=== PATIENT | female | born 1960 | race American Indian/Alaskan Native ===

== ENCOUNTER 2016-12-01 16:02 | Inpatient (IN) | payer BC ==
--- NOTE | 2016-12-01 16:18 | Emergency Department Report ---
Entered by GRACE FARMER, acting as scribe for AUGUSTUS SINGH NP. Chief Complaint: Headache Stated Complaint: MIGRAINES/BLACKOUTS Time Seen by Provider: 12/01/16 16:04 - HPI History of Present Illness: 56 y/o female with Hx of seizures, presents with 2 syncopal episodes. last occurred 3 days ago. Pt notes she has had hx of sz, last 1984.. Sx include ROSS, dizziness and LOC during the most recent episode 3 days ago. - ROS Review of Systems: +ROSS +syncope +dizziness +LOC - Exam Vital Signs: Vital Signs 12/01/16 16:10 Temperature 98.4 F Pulse Rate 81 Respiratory 20 Rate Blood Pressure 113/79 O2 Sat by Pulse 98 Oximetry Physical Exam: Neuro: No focal deficit, CNII-XII are grossly intact. No loss of sensation. No facial Droop. normal finger to nose MSE screening note: Focused history and physical exam performed. Due to findings the following was ordered: ct, ekg, labs ED Disposition for MSE Condition: Stable This documentation as recorded by the scribe,GRACE FARMER,accurately reflects the service I personally performed and the decisions made by FRANCISCO steen TRACY M CHUCK SPLITTER.
--- NOTE | 2016-12-01 16:51 | Cat Scan Report ---
CT HEAD WITHOUT CONTRAST INDICATION: Syncope. COMPARISON: None similar. FINDINGS: Noncontrast head CT demonstrates normal ventricles and sulci without acute or recent infarct, hemorrhage, mass effect or midline shift. Minimal, benign bilateral basal ganglia calcifications. No abnormal extra-axial fluid collections. Posterior fossa structures and basilar cisterns appear within normal limits. Symmetric eye globes. Slight nasal septal deviation. Clear paranasal sinuses and mastoid air cells. Mild atherosclerotic ICA calcifications. Intact calvarium. Normal overlying scalp soft tissues. Few radiopaque dental material incidentally noted. CONCLUSION: No acute intracranial CT abnormality, as described. Thank you for the opportunity to participate in this patient's care.
[2016-12-01 16:54] LABS: Basophils % (Auto) 0.7 % (0.0-1.8); Hematocrit 35.5 % (30.3-42.9); Hemoglobin 11.9 gm/dl (10.1-14.3); Mean Corpuscular HGB Conc 34 % (30-34); Mean Corpuscular Hemoglobin 32 pg (28-32); Mean Corpuscular Volume 95 fl (79-97); Platelet Count 273 K/mm3 (140-440); Red Blood Count 3.75 M/mm3 (3.65-5.03); Red Cell Distribution Width 13.4 % (13.2-15.2); White Blood Count 4.9 K/mm3 (4.5-11.0)
[2016-12-01 16:56] LABS: INR 0.97 (0.87-1.13); Partial Thromboplastin Time 27.5 Sec. (24.2-36.6)
[2016-12-01 17:02] LABS: Creatine Kinase MB < 1.0 ng/mL (0.0-4.0)
[2016-12-01 17:03] LABS: Urine Drugs of Abuse Note Disclamer
[2016-12-01 17:04] LABS: Alanine Aminotransferase 14 units/L (7-56); Albumin/Globulin Ratio 1.4 %; Alkaline Phosphatase 59 units/L (35-129); Anion Gap 17 mmol/L; BUN/Creatinine Ratio 14.28; Blood Urea Nitrogen 10 mg/dL (7-17); Calcium 8.4 mg/dL (8.4-10.2); Carbon Dioxide 26 mmol/L (22-30); Creatine Kinase 49 units/L (30-135); Glucose 114 mg/dL (65-100); Sodium 141 mmol/L (137-145); Total Protein 6.9 g/dL (6.3-8.2)
[2016-12-01 17:10] LABS: Bilirubin,Urine NEG (Negative); Blood,Urine NEG (Negative); Ketones,Urine NEG (Negative); Leukocyte Esterase,Urine MOD (Negative); Mucus,Urine FEW /HPF; Nitrite,Urine NEG (Negative); Protein,Urine <15 mg/dL mg/dL (Negative); Urobilinogen,Urine < 2.0 mg/dL (<2.0)
[2016-12-02] MEDS ORDERED: KEPPRA 1,000 MG/NS 0.75% 100ML 1,000 MG/100 ML BAG IV ONE (01:47)
--- NOTE | 2016-12-02 01:55 | Emergency Department Report ---
HPI - General Chief Complaint: Headache Time Seen by Provider: 12/01/16 16:05 - HPI HPI: Room 10 The patient is a 56-year-old female presenting with a chief complaint of syncope. The patient states 3 days ago she was in her usual state of health states she was running into the house to go to the bathroom and then lost consciousness. Patient states her next memory is waking up in her bed. The patient states family found the patient slumped over on the toilet so they took her in place her in her bed. The patient awakened that evening in her bed. The patient states the following day she continued to feel "funny" which included feeling drained and weak. Patient states she stayed in bed all day for the next couple of days secondary to fatigue and was eventually convinced to come to the ED for evaluation. The patient states she developed a headache yesterday. Prior to her sacral episode the patient states she does not recall any preceding symptoms including chest pain, palpitations or headache. The patient has a history of seizures in the past but has not had one since 1984. The patient has been off her Dilantin since 1984. No one witnessed seizure activity and the patient denies bowel or bladder incontinence or tongue abrasion from the event Wednesday Location: Central nervous system Duration: [see above] Quality: Syncope Severity: Moderate Modifying factors: [see above] Context: [see above] Mode of transportation: [not driving] ED Past Medical Hx - Past Medical History Previous Medical History?: Yes Hx Seizures: Yes (no seizures since 1984) Additional medical history: Vaginal dleivery x 2, Uterine fibroids, Hysterectomy - Surgical History Past Surgical History?: Yes Hx Cholecystectomy: Yes Additional Surgical History: Hysterectomy, Bladder tact - Family History Family history: no significant - Social History Smoking Status: Current Every Day Smoker (1/7 pack per day) Substance Use Type: Alcohol (occasional), Marijuana ED Review of Systems ROS: Stated complaint: MIGRAINES/BLACKOUTS Other details as noted in HPI Comment: All other systems reviewed and negative Constitutional: malaise Eyes: vision change (blurred vision) ENT: denies: ear pain, throat pain Respiratory: denies: cough, shortness of breath, wheezing Cardiovascular: denies: chest pain, palpitations Endocrine: no symptoms reported Gastrointestinal: denies: abdominal pain, nausea, diarrhea Genitourinary: denies: urgency, dysuria, discharge Musculoskeletal: denies: back pain, joint swelling, arthralgia Skin: denies: rash, lesions Neurological: denies: headache, weakness, paresthesias Psychiatric: denies: anxiety, depression Hematological/Lymphatic: denies: easy bleeding, easy bruising Physical Exam - Physical Exam Vital Signs: Vital Signs 12/01/16 16:10 Temperature 98.4 F Pulse Rate 81 Respiratory 20 Rate Blood Pressure 113/79 O2 Sat by Pulse 98 Oximetry Physical Exam: GENERAL: The patient is well-developed well-nourished female lying on stretcher not appearing to be in acute distress. [] HEENT: Normocephalic. Atraumatic. Extraocular motions are intact. Patient has moist mucous membranes. No tongue abrasion NECK: Supple. Trachea midline CHEST/LUNGS: Clear to auscultation. There is no respiratory distress noted. HEART/CARDIOVASCULAR: Regular. There is no tachycardia. There is no gallop rub or murmur. ABDOMEN: Abdomen is soft, nontender. Patient has normal bowel sounds. There is no abdominal distention. SKIN: There is no rash. There is no edema. There is no diaphoresis. NEURO: The patient is awake, alert, and oriented. The patient is cooperative. The patient has no focal neurologic deficits. The patient has normal speech. Cranial nerves II through XII grossly intact, patient care specialist 5+5 bilaterally MUSCULOSKELETAL: There is no evidence of acute injury. ED Course Vital Signs 12/01/16 16:10 Temperature 98.4 F Pulse Rate 81 Respiratory 20 Rate Blood Pressure 113/79 O2 Sat by Pulse 98 Oximetry ED Medical Decision Making - Lab Data Result diagrams: 12/01/16 16:23 12/01/16 16:23 Laboratory Tests 12/01/16 12/01/16 12/01/16 16:23 16:23 16:23 WBC 4.9 RBC 3.75 Hgb 11.9 Hct 35.5 MCV 95 MCH 32 MCHC 34 RDW 13.4 Plt Count 273 Lymph % (Auto) 36.5 H [place] % (Auto) 6.9 Eos % (Auto) 2.0 Baso % (Auto) 0.7 Lymph # 1.8 [place] # 0.3 Eos # 0.1 Baso # 0.0 Seg Neutrophils % 53.9 Seg Neutrophils # 2.6 PT 12.8 INR 0.97 APTT 27.5 Sodium 141 Potassium 4.0 Chloride 102.0 Carbon Dioxide 26 Anion Gap 17 BUN 10 Creatinine 0.7 Estimated GFR > 60 BUN/Creatinine Ratio 14.28 Glucose 114 H Calcium 8.4 Magnesium 1.90 Total Bilirubin 0.30 AST 13 ALT 14 Alkaline Phosphatase 59 Total Creatine Kinase 49 CK-MB (CK-2) < 1.0 CK-MB (CK-2) Rel Index 2.0 Troponin T < 0.010 Total Protein 6.9 Albumin 4.0 Albumin/Globulin Ratio 1.4 Urine Color Urine Turbidity Urine pH Ur Specific [place] Urine Protein Urine Glucose (UA) Urine Ketones Urine Blood Urine Nitrite Urine Bilirubin Urine Urobilinogen Ur Leukocyte Esterase Urine WBC (Auto) Urine RBC (Auto) U Epithel Cells (Auto) Urine Mucus Urine Opiates Screen Urine Methadone Screen Ur Barbiturates Screen Ur Phencyclidine Scrn Ur Amphetamines Screen U Benzodiazepines Scrn Urine Cocaine Screen U Marijuana (THC) Screen Drugs of Abuse Note 12/01/16 12/01/16 16:55 16:55 WBC RBC Hgb Hct MCV MCH MCHC RDW Plt Count Lymph % (Auto) [place] % (Auto) Eos % (Auto) Baso % (Auto) Lymph # [place] # Eos # Baso # Seg Neutrophils % Seg Neutrophils # PT INR APTT Sodium Potassium Chloride Carbon Dioxide Anion Gap BUN Creatinine Estimated GFR BUN/Creatinine Ratio Glucose Calcium Magnesium Total Bilirubin AST ALT Alkaline Phosphatase Total Creatine Kinase CK-MB (CK-2) CK-MB (CK-2) Rel Index Troponin T Total Protein Albumin Albumin/Globulin Ratio Urine Color Yellow Urine Turbidity Clear Urine pH 5.0 Ur Specific [place] 1.011 Urine Protein <15 mg/dl Urine Glucose (UA) Neg Urine Ketones Neg Urine Blood Neg Urine Nitrite Neg Urine Bilirubin Neg Urine Urobilinogen < 2.0 Ur Leukocyte Esterase Mod Urine WBC (Auto) 4.0 Urine RBC (Auto) 4.0 U Epithel Cells (Auto) 4.0 Urine Mucus Few Urine Opiates Screen Presumptive negative Urine Methadone Screen Presumptive negative Ur Barbiturates Screen Presumptive negative Ur Phencyclidine Scrn Presumptive negative Ur Amphetamines Screen Presumptive negative U Benzodiazepines Scrn Presumptive negative Urine Cocaine Screen Presumptive negative U Marijuana (THC) Screen Presumptive positive Drugs of Abuse Note Disclamer - EKG Data -: EKG Interpreted by Wi EKG shows normal: sinus rhythm Rate: normal - EKG Data When compared to previous EKG there are: previous EKG unavailable Interpretation: normal EKG - Radiology Data Radiology results: report reviewed (CT head), image reviewed (CT head) CT head (read by radiologist)-no acute intracranial CT abnormality. - Differential Diagnosis syncope, seizure, ICH, electrolyte abnormality, dysrhythmia Critical care attestation.: If time is entered above; I have spent that time in minutes in the direct care of this critically ill patient, excluding procedure time. ED Disposition Clinical Impression: Syncope Disposition: DC-09 OP ADMIT IP TO THIS HOSP Is pt being admited?: Yes Does the pt Need Aspirin: Yes Condition: Fair Instructions: Syncope (ED) Referrals: DEANNA GOODRICH MD [Primary Care Provider] - 3-5 Days Time of Disposition: 01:57 (hospitalist paged)
[2016-12-02] MEDS ORDERED: ASPIRIN PO ONE (01:57)
--- NOTE | 2016-12-02 02:54 | Admit Criteria Form ---
Admission Criteria Documentation: SYNCOPE Clinical Indications for Admission to Inpatient Care ( Place 'X' for any and all applicable criteria): Admission is indicated for syncope and ANY ONE of the following (1)(2)(3)(4)(5) (6)(7) : [X ]I. Inpatient admission required rather than observation care (Also use Syncope: Observation Care Criteria as appropriate) because of ANY ONE of the following: [ ]a) Hemodynamic instability that is severe or persistent [ ]b) Cardiac arrhythmias of immediate concern identified or strongly suspected (eg, needs electrophysiologic study) [ ]c) Acute coronary syndrome identified (Also use Myocardial Infarction or Angina Criteria form ) [ ]d) Structural cardiac disorder (eg, aortic stenosis) suspected as cause that requires immediate correction [ ]e) Respiratory symptoms (eg, dyspnea, tachypnea) that are severe or persistent [ ]f) Neurologic signs or symptoms that are severe or persistent ( eg, stroke, seizures, altered mental status) [ ]g) Severe electrolyte abnormalities requiring inpatient care [ ]h) Supplemental oxygen or respiratory treatment for over 24 hrs that are performable only in acute inpatient setting [ ]i) IV fluid to replace significant ongoing (eg, for over 24 hrs ) losses (>3 L/m2 per day) [ ]j) Continuous intravenous infusion of anticoagulation, platelet inhibitor, vasoactive, or antiarrhythmic medication(15)(16) [ ]k) Pulmonary artery catheter monitoring [ ]l) Temporary pacemaker placement(17) [ ]m) Emergent cardioversion(18) [ X]n) Other conditions, treatment or monitoring requiring inpatient admission [ ]II. Suspicion of imminently dangerous cause (eg, rare causes like pericardial tamponade, pulmonary embolism) [ ]III. Syncope causing severe injury requiring hospitalization Extended stay beyond goal length of stay may be needed for(28) [ ]a) Dangerous arrhythmia(15)(23)(27)(29) [ ]b) Myocardial ischemia [ ]c) Seizure disorder [ ]d) Syncope-related injuries The original [facility] content created by [employer] has been revised. The portions of the content which have been revised are identified through the use of italic text or in bold, and [employer] has neither reviewed nor approved the modified material. All other unmodified content is copyright [facility] [employer]. Please see references footnoted in the original [facility] edition 2016 Admission Criteria Met: Yes
[2016-12-02] MEDS ORDERED: TYLENOL PO PRN (04:10)
[2016-12-02] MEDS ORDERED: ZOFRAN IV PRN ×2 (04:11→09:00)
[2016-12-02] MEDS ORDERED: TYLENOL ONE (04:13)
[2016-12-02] MEDS ORDERED: NACL 0.9% 1000 ML 1,000 ML IV SCH (05:00)
--- NOTE | 2016-12-02 08:00 | History and Physical Report ---
CHIEF COMPLAINT: Syncopal attack. Other complaint include headache. HISTORY OF PRESENTING ILLNESS: The patient is a 56-year-old female who said that she passed out about 6 days ago, but prior to passing out 6 days ago, she felt dizzy with some headache and then passed out for unknown period of time and then 3 days ago on Wednesday without any warning she passed out again, but prior to passing out 3 days ago, there was no symptom of headache, dizziness, or chest pain. Also, the patient denies history of nausea, vomiting, or shortness of breath and was compelled by family to come to the Emergency Room to be checked out. The patient said after passing out, she stayed in the house for couple of days, feeling weak and having some funny feeling with drained energy. PAST MEDICAL HISTORY: Pertinent for seizure disorder and last seizure attack was in 1984. PAST SURGICAL HISTORY: Pertinent for hysterectomy, bladder, back surgery. SOCIAL HISTORY: The patient smokes cigarettes. Drinks alcohol occasionally and uses illicit drug notably marijuana. FAMILY HISTORY: Noncontributory. MEDICATIONS: The patient's home medications are not known at this time. REVIEW OF SYSTEMS: CONSTITUTIONAL: There is no fever, no chills, no diaphoresis. HEENT: There is headache with no sore throat. CARDIOVASCULAR SYSTEM: There is no chest pain or orthopnea. RESPIRATORY SYSTEM: There is no shortness of breath or cough. GASTROINTESTINAL SYSTEM: There is no nausea, no vomiting, no abdominal pain, diarrhea, or constipation. NEUROLOGICAL SYSTEM: Syncopal attack noted, generalized weakness noted. No change in mental status. MUSCULOSKELETAL: There is no joint pain or swelling. DERMATOLOGICAL SYSTEM: There is no skin rash or itching. GENITOURINARY SYSTEM: There is no dysuria, hematuria, or flank pain. Rest of system review is normal. PHYSICAL EXAMINATION: GENERAL: At the time of exam, the patient was found to be alert, oriented x3 and not in acute distress. VITAL SIGNS: Shows temperature of 97.8 degrees Fahrenheit, pulse of 73, respirations 18, blood pressure 126/69, O2 sat of 100% on room air. HEENT: Showed pupils to be equal, round, reactive to light, and accommodation. Extraocular muscles are intact. NECK: Supple with no JVD or carotid bruit. CARDIOVASCULAR: Showed normal first and second heart sounds with no gallops or murmur. RESPIRATORY SYSTEM: Show good air entry on both sides of the lung with no abnormal breath sounds. GASTROINTESTINAL SYSTEM: Show abdomen to be full, soft, nontender with no organomegaly or rigidity. NEUROLOGIC: Shows no focal deficit. MUSCULOSKELETAL SYSTEM: Show no joint swelling or tenderness. DERMATOLOGICAL SYSTEM: Show no skin rash. GENITOURINARY SYSTEM: Showing no costovertebral angle tenderness. PERTINENT LABORATORY: The patient had urine drug screen done that was positive for marijuana. Urinalysis came back unremarkable. Cardiac enzyme was unremarkable. The patient's chemistry was unremarkable and a CBC also came back unremarkable. IMAGING STUDIES: The patient had a CT of the head done with no contrast and shows no acute intracranial lesion. DIAGNOSES: 1. Syncope. 2. Marijuana abuse. PLAN: The patient will be admitted to medical floor on telemetry and will have cardiac enzymes involving troponin, total CK, and CK-MB checked q. 6 hours x2 more levels. The patient will have MRI of the brain without contrast done this morning and will have bilateral carotid Doppler done this morning as well as 2D echo. The patient will be on IV normal saline at 100 mL an hour and will be on Tylenol 650 mg by mouth every 4 hours as needed for fever and headache. The patient will be on IV Zofran 4 mg every 8 hours for nausea and vomiting and DVT prophylaxis will be through sequential compressive device and the patient's home medications will be reconciled and applied accordingly. JOB# [id number] OCN/ARIC MTDT[place]
[2016-12-02] MEDS ORDERED: DULCOLAX PR PRN (09:00)
[2016-12-02] MEDS ORDERED: MORPHINE IV PRN (09:00)
[2016-12-02 09:49] LABS: Basophils % (Auto) 0.5 % (0.0-1.8); Eosinophils % (Auto) 2.1 % (0.0-4.3); Hematocrit 34.5 % (30.3-42.9); Hemoglobin 11.7 gm/dl (10.1-14.3); Mean Corpuscular HGB Conc 34 % (30-34); Mean Corpuscular Hemoglobin 32 pg (28-32); Mean Corpuscular Volume 94 fl (79-97); Platelet Count 254 K/mm3 (140-440); Red Blood Count 3.69 M/mm3 (3.65-5.03); Red Cell Distribution Width 13.2 % (13.2-15.2); White Blood Count 5.1 K/mm3 (4.5-11.0)
--- NOTE | 2016-12-02 10:07 | Magnetic Resonance Report ---
MRI OF THE BRAIN WITHOUT CONTRAST: HISTORY: Syncope PROCEDURE: Multiplanar, multisequence MR imaging of the brain without IV contrast was performed. COMPARISON: CT head performed 12/01/16. FINDINGS: The brain parenchyma signal intensity and its hart white interface are within normal limits on all sequences. No evidence for acute ischemia, hemorrhage or mass. No chronic infarct or extra-axial fluid collection. The midline structures are central. The basal cisterns are patent. Normal ventricular size. The orbital cavities and sella turcica demonstrate no abnormality. The visualized paranasal sinuses and mastoid air cells are well aerated. IMPRESSION: Unremarkable non-enhanced MRI of the brain.
[2016-12-02 10:08] LABS: Anion Gap 17 mmol/L; BUN/Creatinine Ratio 16.66; Blood Urea Nitrogen 10 mg/dL (7-17); Calcium 8.4 mg/dL (8.4-10.2); Carbon Dioxide 24 mmol/L (22-30); Chloride 105.1 mmol/L (98-107); Glucose 92 mg/dL (65-100); Potassium 4.1 mmol/L (3.6-5.0); Sodium 142 mmol/L (137-145)
--- NOTE | 2016-12-02 11:27 | History and Physical Report ---
<AIDEE MEMBRENO - Last Filed: 12/02/16 13:10> History of Present Illness Date of examination: 12/02/16 Date of admission: 12/02/16 04:05 Chief complaint: passed out 3 days ago History of present illness: Patient is a 56 years old -[place] with past medical history of seizure who presents emergency department status post syncope. patient stated that was in her usual state of health, which allows her to lead a fairly active life, until six days. Patient when she was setting on the porch eating Eddy, at that time she felt "dizzy". She described the dizziness as "feeling like she was going to pass out." She doesn't remember what happened but thinks she lost consciousness for only a few seconds to minutes. No one was home at the time to witness it. After or prior to losing consciousness, she did not experience a headache, chest pain, palpitations, or shortness of breath. She was not incontinent. She stopped eating the peach, and she felt fine.She had a very similar episode three days ago while she was unlocking her house door. She felt like she was going to faint and fell back onto the door so did not hurt herself. this time her sister was with her to witness it. Her sister insisted that she come to the ER. She has not started any new medicines or engaged in any new activities lately. She has not been sick including no N/V/D. She has never had chest pains or been told she has heart disease. She has had vertigo in the past but that was very different from his current "dizziness". She has not had any change in vision, slurred speech, weakness, numbness, biting tongue or tingling in the last week. Patient reported throbbing bilateral headache. Patient was given IV Keppra and aspirin in the ED. Past History Past Medical History: seizures (not on med) Past Surgical History: No surgical history Social history: no significant social history, other (Marijuana abuse) Family history: CAD Medications and Allergies Allergies Allergy/AdvReac Type Severity Reaction Status Date / Time Penicillins AdvReac Severe FACE & Unverified 01/31/14 12:33 TONGUE SWELLS Home Medications Medication Instructions Recorded Confirmed Last Taken Type Lansoprazole [Prevacid] 30 mg PO DAILY 12/02/16 12/02/16 1 Week Ago History Active Meds: Active Medications Acetaminophen (Tylenol) 650 mg PO Q4H PRN PRN Reason: Pain MILD(1-3)/Fever >100.5/ROSS Aspirin (Aspirin) 325 mg PO QDAY [facility]RES Bisacodyl (Dulcolax) 10 mg [place] QDAY PRN PRN Reason: Constipation unrelieved by MOM Sodium Chloride (Nacl 0.9% 1000 Ml) 1,000 mls @ 100 mls/hr IV DIRECT ANDRES Dextrose/Sodium Chloride (D5/0.45ns) 1,000 mls @ 75 mls/hr IV DIRECT ANDRES Levetiracetam (Keppra) 500 mg PO BID [facility] Morphine Sulfate (Morphine) 2 mg IV Q4H PRN PRN Reason: Pain, Moderate (4-6) Ondansetron HCl (Zofran) 4 mg IV Q4H PRN PRN Reason: Nausea And Vomiting Review of Systems Constitutional: no weight loss, no weight gain, no chills, no sweats Ears, nose, mouth and throat: no ear pain, no ear discharge, no tinnitis, no decreased hearing, no nose pain, no nasal congestion, no nasal discharge Breasts: no change in shape, no swelling Cardiovascular: syncope, lightheadedness, no chest pain, no orthopnea, no palpitations, no rapid/irregular heart beat Respiratory: no cough, no cough with sputum, no excessive sputum, no hemoptysis Gastrointestinal: no nausea, no vomiting, no diarrhea, no constipation Genitourinary Female: no pelvic pain, no flank pain, no menorrhagia, no dysuria Rectal: no pain, no incontinence Musculoskeletal: no neck stiffness, no neck pain, no shooting arm pain Integumentary: no rash, no pruritis, no redness, no sores Neurological: syncope, no transient paralysis, no paralysis, no weakness, no parathesias, no numbness, no tingling, no seizures, no headaches Psychiatric: no insomnia, no hypersomnia, no change in libido Endocrine: no cold intolerance, no heat intolerance, no polyphagia, no excessive thirst Hematologic/Lymphatic: no easy bruising, no easy bleeding Allergic/Immunologic: no urticaria, no allergic rhinitis Exam - Constitutional Vitals: Temp Pulse Resp BP Pulse Ox 98.0 F 47 L 20 127/70 99 12/02/16 10:55 12/02/16 10:55 12/02/16 10:55 12/02/16 10:55 12/02/16 10:55 General appearance: Present: no acute distress - EENT Eyes: Present: PERRL ENT: hearing intact - Neck Neck: Present: supple - Respiratory Respiratory effort: normal Respiratory: bilateral: CTA - Cardiovascular Heart rate: 47 (bradycardia.) Heart Sounds: Present: S1 & S2 - Extremities Extremities: no ischemia Peripheral Pulses: within normal limits - Abdominal General gastrointestinal: Present: soft, non-tender Female genitourinary: Present: deferred - Rectal Rectal Exam: deferred - Integumentary Integumentary: Present: clear, warm, dry - Musculoskeletal Musculoskeletal: strength equal bilaterally - Psychiatric Psychiatric: appropriate mood/affect - Neurologic Neurologic: CNII-XII intact - Allied Health Allied health notes reviewed: nursing Results - Labs CBC & Chem 7: 12/02/16 09:38 12/02/16 09:38 Labs: Laboratory Last Values WBC 5.1 K/mm3 (4.5-11.0) 12/02/16 09:38 RBC 3.69 M/mm3 (3.65-5.03) 12/02/16 09:38 Hgb 11.7 gm/dl (10.1-14.3) 12/02/16 09:38 Hct 34.5 % (30.3-42.9) 12/02/16 09:38 MCV 94 fl (79-97) 12/02/16 09:38 MCH 32 pg (28-32) 12/02/16 09:38 MCHC 34 % (30-34) 12/02/16 09:38 RDW 13.2 % (13.2-15.2) 12/02/16 09:38 Plt Count 254 K/mm3 (140-440) 12/02/16 09:38 Lymph % (Auto) 37.8 % (13.4-35.0) H 12/02/16 09:38 [place] % (Auto) 6.8 % (0.0-7.3) 12/02/16 09:38 Eos % (Auto) 2.1 % (0.0-4.3) 12/02/16 09:38 Baso % (Auto) 0.5 % (0.0-1.8) 12/02/16 09:38 Lymph # 1.9 K/mm3 (1.2-5.4) 12/02/16 09:38 [place] # 0.3 K/mm3 (0.0-0.8) 12/02/16 09:38 Eos # 0.1 K/mm3 (0.0-0.4) 12/02/16 09:38 Baso # 0.0 K/mm3 (0.0-0.1) 12/02/16 09:38 Seg Neutrophils % 52.8 % (40.0-70.0) 12/02/16 09:38 Seg Neutrophils # 2.7 K/mm3 (1.8-7.7) 12/02/16 09:38 PT 12.8 Sec. (12.2-14.9) 12/01/16 16:23 INR 0.97 (0.87-1.13) 12/01/16 16:23 APTT 27.5 Sec. (24.2-36.6) 12/01/16 16:23 Sodium 142 mmol/L (137-145) 12/02/16 09:38 Potassium 4.1 mmol/L (3.6-5.0) 12/02/16 09:38 Chloride 105.1 mmol/L (98-107) 12/02/16 09:38 Carbon Dioxide 24 mmol/L (22-30) 12/02/16 09:38 Anion Gap 17 mmol/L 12/02/16 09:38 BUN 10 mg/dL (7-17) 12/02/16 09:38 Creatinine 0.6 mg/dL (0.7-1.2) L 12/02/16 09:38 Estimated GFR > 60 ml/min 12/02/16 09:38 BUN/Creatinine Ratio 16.66 % 12/02/16 09:38 Glucose 92 mg/dL (65-100) 12/02/16 09:38 Calcium 8.4 mg/dL (8.4-10.2) 12/02/16 09:38 Magnesium 1.90 mg/dL (1.7-2.3) 12/01/16 16:23 Total Bilirubin 0.30 mg/dL (0.1-1.2) 12/01/16 16:23 AST 13 units/L (5-40) 12/01/16 16:23 ALT 14 units/L (7-56) 12/01/16 16:23 Alkaline Phosphatase 59 units/L (35-129) 12/01/16 16:23 Total Creatine Kinase 49 units/L (30-135) 12/01/16 16:23 CK-MB (CK-2) < 1.0 ng/mL (0.0-4.0) 12/01/16 16:23 CK-MB (CK-2) Rel Index 2.0 (0-4) 12/01/16 16:23 Troponin T < 0.010 ng/mL (0.00-0.029) 12/01/16 16:23 Total Protein 6.9 g/dL (6.3-8.2) 12/01/16 16:23 Albumin 4.0 g/dL (3.9-5) 12/01/16 16:23 Albumin/Globulin Ratio 1.4 % 12/01/16 16:23 Urine Color Yellow (Yellow) 12/01/16 16:55 Urine Turbidity Clear (Clear) 12/01/16 16:55 Urine pH 5.0 (5.0-7.0) 12/01/16 16:55 Ur Specific [place] 1.011 (1.003-1.030) 12/01/16 16:55 Urine Protein <15 mg/dl mg/dL (Negative) 12/01/16 16:55 Urine Glucose (UA) Neg mg/dL (Negative) 12/01/16 16:55 Urine Ketones Neg mg/dL (Negative) 12/01/16 16:55 Urine Blood Neg (Negative) 12/01/16 16:55 Urine Nitrite Neg (Negative) 12/01/16 16:55 Urine Bilirubin Neg (Negative) 12/01/16 16:55 Urine Urobilinogen < 2.0 mg/dL (<2.0) 12/01/16 16:55 Ur Leukocyte Esterase Mod (Negative) 12/01/16 16:55 Urine WBC (Auto) 4.0 /HPF (0.0-6.0) 12/01/16 16:55 Urine RBC (Auto) 4.0 /HPF (0.0-6.0) 12/01/16 16:55 U Epithel Cells (Auto) 4.0 /HPF (0-13.0) 12/01/16 16:55 Urine Mucus Few /HPF 12/01/16 16:55 Urine Opiates Screen Presumptive negative 12/01/16 16:55 Urine Methadone Screen Presumptive negative 12/01/16 16:55 Ur Barbiturates Screen Presumptive negative 12/01/16 16:55 Ur Phencyclidine Scrn Presumptive negative 12/01/16 16:55 Ur Amphetamines Screen Presumptive negative 12/01/16 16:55 U Benzodiazepines Scrn Presumptive negative 12/01/16 16:55 Urine Cocaine Screen Presumptive negative 12/01/16 16:55 U Marijuana (THC) Screen Presumptive positive 12/01/16 16:55 Drugs of Abuse Note Disclamer 12/01/16 16:55 - Imaging and Cardiology CT Scan - head: image reviewed (no acute intracranial process noted) MRI - head: image reviewed (unremarkable) Venous US: image reviewed (REPORT; <50% STENOSIS NOTED BILAT BY DOPPLER VELOCITIES) Assessment and Plan Assessment and plan: Patient is a 56 years old -[place] with past medical history of seizure who presents emergency department complaining of syncope. Negative cardiac enzyme X3, EKG Sinus bradycardia with HR of high 40's/50's and Chest x-ray-no focal infiltrates, no pneumothorax. CT of the head no acute intracranial process. Unremarkable MRI of the head. Normal VL Carotid duplex. Syncope Patient will admit to telemetry floor Unremarkable MRI f the head Negative CT of the head Normal VL Carotid duplex bilateral EKG Sinus bradycardia with HR of high 40's/50'swe will also get another EKG in order for any change that have taken since the first obtained Negative cardiac enzymes and follow cardiac enzymes troponin Echocardiogram ordered Started on aspirin IV fluid hydration. Bradycardia Most likely patient's baseline no previous EKG to compare Closely cardiac monitoring IV fluid hydration Echocardiogram ordred Migraine headache Normal CT/MRI of the head Pain controlled with morphine Marijuana abuse Marijuana cessation counseling done patient strongly advised to quit smoking. Tobacco abuse Smoking sensation considering done patient strongly advised to quit. DVT prophylaxis Lovenox Advance Directives: Yes VTE prophylaxis?: Chemical Contraindication Mechanical VTE Prophylaxis: Treatment Not Indicated Plan of care discussed with patient/family: Yes <MEDHAT SANDOVAL - Last Filed: 12/02/16 14:44> History of Present Illness Date of admission: 12/02/16 04:05 Medications and Allergies Active Meds: Active Medications Acetaminophen (Tylenol) 650 mg PO Q4H PRN PRN Reason: Pain MILD(1-3)/Fever >100.5/ROSS Last Admin: 12/02/16 11:47 Dose: 650 mg Aspirin (Aspirin) 325 mg PO QDAY [facility] Last Admin: 12/02/16 11:47 Dose: 325 mg Bisacodyl (Dulcolax) 10 mg [place] QDAY PRN PRN Reason: Constipation unrelieved by MOM Sodium Chloride (Nacl 0.9% 1000 Ml) 1,000 mls @ 100 mls/hr IV DIRECT ANDRES Dextrose/Sodium Chloride (D5/0.45ns) 1,000 mls @ 75 mls/hr IV DIRECT ANDRES Last Admin: 12/02/16 11:48 Dose: 75 mls/hr Levetiracetam (Keppra) 500 mg PO BID [facility] Last Admin: 12/02/16 11:47 Dose: 500 mg Morphine Sulfate (Morphine) 2 mg IV Q4H PRN PRN Reason: Pain, Moderate (4-6) Ondansetron HCl (Zofran) 4 mg IV Q4H PRN PRN Reason: Nausea And Vomiting Exam - Constitutional Vitals: Temp Pulse Resp BP Pulse Ox 98.0 F 47 L 20 127/70 99 12/02/16 10:55 12/02/16 10:55 12/02/16 12:04 12/02/16 10:55 12/02/16 10:55 Results - Labs CBC & Chem 7: 12/02/16 09:38 12/02/16 09:38 Labs: Laboratory Last Values WBC 5.1 K/mm3 (4.5-11.0) 12/02/16 09:38 RBC 3.69 M/mm3 (3.65-5.03) 12/02/16 09:38 Hgb 11.7 gm/dl (10.1-14.3) 12/02/16 09:38 Hct 34.5 % (30.3-42.9) 12/02/16 09:38 MCV 94 fl (79-97) 12/02/16 09:38 MCH 32 pg (28-32) 12/02/16 09:38 MCHC 34 % (30-34) 12/02/16 09:38 RDW 13.2 % (13.2-15.2) 12/02/16 09:38 Plt Count 254 K/mm3 (140-440) 12/02/16 09:38 Lymph % (Auto) 37.8 % (13.4-35.0) H 12/02/16 09:38 [place] % (Auto) 6.8 % (0.0-7.3) 12/02/16 09:38 Eos % (Auto) 2.1 % (0.0-4.3) 12/02/16 09:38 Baso % (Auto) 0.5 % (0.0-1.8) 12/02/16 09:38 Lymph # 1.9 K/mm3 (1.2-5.4) 12/02/16 09:38 [place] # 0.3 K/mm3 (0.0-0.8) 12/02/16 09:38 Eos # 0.1 K/mm3 (0.0-0.4) 12/02/16 09:38 Baso # 0.0 K/mm3 (0.0-0.1) 12/02/16 09:38 Seg Neutrophils % 52.8 % (40.0-70.0) 12/02/16 09:38 Seg Neutrophils # 2.7 K/mm3 (1.8-7.7) 12/02/16 09:38 PT 12.8 Sec. (12.2-14.9) 12/01/16 16:23 INR 0.97 (0.87-1.13) 12/01/16 16:23 APTT 27.5 Sec. (24.2-36.6) 12/01/16 16:23 Sodium 142 mmol/L (137-145) 12/02/16 09:38 Potassium 4.1 mmol/L (3.6-5.0) 12/02/16 09:38 Chloride 105.1 mmol/L (98-107) 12/02/16 09:38 Carbon Dioxide 24 mmol/L (22-30) 12/02/16 09:38 Anion Gap 17 mmol/L 12/02/16 09:38 BUN 10 mg/dL (7-17) 12/02/16 09:38 Creatinine 0.6 mg/dL (0.7-1.2) L 12/02/16 09:38 Estimated GFR > 60 ml/min 12/02/16 09:38 BUN/Creatinine Ratio 16.66 % 12/02/16 09:38 Glucose 92 mg/dL (65-100) 12/02/16 09:38 Calcium 8.4 mg/dL (8.4-10.2) 12/02/16 09:38 Magnesium 1.90 mg/dL (1.7-2.3) 12/01/16 16:23 Total Bilirubin 0.30 mg/dL (0.1-1.2) 12/01/16 16:23 AST 13 units/L (5-40) 12/01/16 16:23 ALT 14 units/L (7-56) 12/01/16 16:23 Alkaline Phosphatase 59 units/L (35-129) 12/01/16 16:23 Total Creatine Kinase 49 units/L (30-135) 12/01/16 16:23 CK-MB (CK-2) < 1.0 ng/mL (0.0-4.0) 12/01/16 16:23 CK-MB (CK-2) Rel Index 2.0 (0-4) 12/01/16 16:23 Troponin T < 0.010 ng/mL (0.00-0.029) 12/01/16 16:23 Total Protein 6.9 g/dL (6.3-8.2) 12/01/16 16:23 Albumin 4.0 g/dL (3.9-5) 12/01/16 16:23 Albumin/Globulin Ratio 1.4 % 12/01/16 16:23 Urine Color Yellow (Yellow) 12/01/16 16:55 Urine Turbidity Clear (Clear) 12/01/16 16:55 Urine pH 5.0 (5.0-7.0) 12/01/16 16:55 Ur Specific [place] 1.011 (1.003-1.030) 12/01/16 16:55 Urine Protein <15 mg/dl mg/dL (Negative) 12/01/16 16:55 Urine Glucose (UA) Neg mg/dL (Negative) 12/01/16 16:55 Urine Ketones Neg mg/dL (Negative) 12/01/16 16:55 Urine Blood Neg (Negative) 12/01/16 16:55 Urine Nitrite Neg (Negative) 12/01/16 16:55 Urine Bilirubin Neg (Negative) 12/01/16 16:55 Urine Urobilinogen < 2.0 mg/dL (<2.0) 12/01/16 16:55 Ur Leukocyte Esterase Mod (Negative) 12/01/16 16:55 Urine WBC (Auto) 4.0 /HPF (0.0-6.0) 12/01/16 16:55 Urine RBC (Auto) 4.0 /HPF (0.0-6.0) 12/01/16 16:55 U Epithel Cells (Auto) 4.0 /HPF (0-13.0) 12/01/16 16:55 Urine Mucus Few /HPF 12/01/16 16:55 Urine Opiates Screen Presumptive negative 12/01/16 16:55 Urine Methadone Screen Presumptive negative 12/01/16 16:55 Ur Barbiturates Screen Presumptive negative 12/01/16 16:55 Ur Phencyclidine Scrn Presumptive negative 12/01/16 16:55 Ur Amphetamines Screen Presumptive negative 12/01/16 16:55 U Benzodiazepines Scrn Presumptive negative 12/01/16 16:55 Urine Cocaine Screen Presumptive negative 12/01/16 16:55 U Marijuana (THC) Screen Presumptive positive 12/01/16 16:55 Drugs of Abuse Note Disclamer 12/01/16 16:55 Assessment and Plan Assessment and plan: I have personally seen and examined the patient. I reviewed the Nurse Practitioner's note and agree with the assessment and plan Syncopal episode most likely autonomic dysfunction versus seizure disorder versus other ordered EEG and neurology consult Informed patient that she should not drive until cleared by neurologist
[2016-12-02] MEDS: TYLENOL PO PRN ×3 (11:47→20:40)
[2016-12-02] MEDS: KEPPRA PO SCH ×2 (11:47→21:33)
[2016-12-02] MEDS: ASPIRIN PO SCH (11:47)
[2016-12-02] MEDS: D5/0.45NS 1,000 ML IV SCH (11:48)
[2016-12-03] MEDS: D5/0.45NS 1,000 ML IV SCH (02:17)
--- NOTE | 2016-12-03 08:32 | Consultation ---
History of Present Illness - Reason for Consult Consult date: 12/03/16 seizure evaluation - History of Present Illness the MRI was reviewed by me and it is normal the patient has been off dilantin and there is pruior hx of seizure disorder plan to check EEG if no other cause for syncope found might suggest restarting medication like keppra will review EEG once done other w/u is pending Thanks Past History Past Medical History: seizures (not on med) Past Surgical History: No surgical history Social history: no significant social history, other (Marijuana abuse) Family history: CAD Medications and Allergies Allergies Allergy/AdvReac Type Severity Reaction Status Date / Time Penicillins AdvReac Severe FACE & Unverified 01/31/14 12:33 TONGUE SWELLS Home Medications Medication Instructions Recorded Confirmed Last Taken Type Lansoprazole [Prevacid] 30 mg PO DAILY 12/02/16 12/02/16 1 Week Ago History Active Meds: Active Medications Acetaminophen (Tylenol) 650 mg PO Q4H PRN PRN Reason: Pain MILD(1-3)/Fever >100.5/ROSS Last Admin: 12/02/16 20:40 Dose: 650 mg Aspirin (Aspirin) 325 mg PO QDAY [facility] Last Admin: 12/02/16 11:47 Dose: 325 mg Bisacodyl (Dulcolax) 10 mg [place] QDAY PRN PRN Reason: Constipation unrelieved by MOM Sodium Chloride (Nacl 0.9% 1000 Ml) 1,000 mls @ 100 mls/hr IV DIRECT ANDRES Dextrose/Sodium Chloride (D5/0.45ns) 1,000 mls @ 75 mls/hr IV DIRECT ANDRES Last Admin: 12/03/16 02:17 Dose: 75 mls/hr Levetiracetam (Keppra) 500 mg PO BID [facility] Last Admin: 12/02/16 21:33 Dose: 500 mg Morphine Sulfate (Morphine) 2 mg IV Q4H PRN PRN Reason: Pain, Moderate (4-6) Ondansetron HCl (Zofran) 4 mg IV Q4H PRN PRN Reason: Nausea And Vomiting Exam - Constitutional Vitals: Temp Pulse Resp BP Pulse Ox 98.0 F 44 L 18 144/59 98 12/03/16 08:00 12/03/16 08:00 12/03/16 08:00 12/03/16 08:00 12/03/16 08:00 Results - Labs CBC & Chem 7: 12/02/16 09:38 12/02/16 09:38 Labs: Abnormal lab results 12/02/16 12/02/16 Range/Units 09:38 09:38 Lymph % (Auto) 37.8 H (13.4-35.0) % Creatinine 0.6 L (0.7-1.2) mg/dL
[2016-12-03] MEDS: ASPIRIN PO SCH (09:01)
[2016-12-03] MEDS: KEPPRA PO SCH ×2 (09:01→22:18)
[2016-12-03] MEDS: TYLENOL PO PRN ×2 (09:01→20:37)
--- NOTE | 2016-12-03 12:40 | Consultation ---
History of Present Illness Consult date: 12/03/16 Consult reason: bradycardia, syncope History of present illness: This is a 56yr old woman who reports remote history of Seizure disorder no longer taking medications who is admitted with syncope. Patient reports 5 days ago she was found sitting on the toilet with her head resting on the bathroom countertop by a family member. Patient complained of headaches and fatigue when she came to herself. Daughter at bedside also reports the patient was diaphoretic. Her initial ECG shows a normal sinus rhythm. She had no chest pain or shortness of breath. She denies palpitations. On telemetry monitoring she was noted sinus bradycardia, rate ranging from mid 40s to 50s thus this cardiac consultation. Review of office records shows the patient has a history of chronic sinus bradycardia. 3 years ago she had a normal perfusion stress thallium. Ejection fraction 65% on echocardiogram. She wore a holter monitor that showed sinus bradycardia with rate ranging from 40s- 100. No pauses noted. Past History Past Medical History: seizures (not on med) Past Surgical History: No surgical history Social history: no significant social history, other (Marijuana abuse) Family history: CAD Medications and Allergies Allergies Allergy/AdvReac Type Severity Reaction Status Date / Time Penicillins AdvReac Severe FACE & Unverified 01/31/14 12:33 TONGUE SWELLS Home Medications Medication Instructions Recorded Confirmed Last Taken Type Lansoprazole [Prevacid] 30 mg PO DAILY 12/02/16 12/02/16 1 Week Ago History Active Meds: Active Medications Acetaminophen (Tylenol) 650 mg PO Q4H PRN PRN Reason: Pain MILD(1-3)/Fever >100.5/ROSS Last Admin: 12/03/16 09:01 Dose: 650 mg Aspirin (Aspirin) 325 mg PO QDAY [facility] Last Admin: 12/03/16 09:01 Dose: 325 mg Bisacodyl (Dulcolax) 10 mg [place] QDAY PRN PRN Reason: Constipation unrelieved by MOM Sodium Chloride (Nacl 0.9% 1000 Ml) 1,000 mls @ 100 mls/hr IV DIRECT ANDRES Dextrose/Sodium Chloride (D5/0.45ns) 1,000 mls @ 75 mls/hr IV DIRECT ANDRES Last Admin: 12/03/16 02:17 Dose: 75 mls/hr Levetiracetam (Keppra) 500 mg PO BID [facility] Last Admin: 12/03/16 09:01 Dose: 500 mg Morphine Sulfate (Morphine) 2 mg IV Q4H PRN PRN Reason: Pain, Moderate (4-6) Ondansetron HCl (Zofran) 4 mg IV Q4H PRN PRN Reason: Nausea And Vomiting Physical Examination Vital Signs Temp Pulse Resp BP Pulse Ox 98.4 F 81 20 113/79 98 12/01/16 16:10 12/01/16 16:10 12/01/16 16:10 12/01/16 16:10 12/01/16 16:10 General appearance: no acute distress HEENT: Positive: PERRL Neck: Positive: trachea midline Cardiac: Positive: Bradycardia Lungs: Positive: Decreased Breath Sounds Neuro: Positive: Grossly Intact Results 12/02/16 09:38 12/02/16 09:38 Assessment and Plan Syncope Hx of Seizure disorder Sinus bradycardia on telemetry Recommendations: Will check a TSH. Echocardiogram for LVEF assessment. Agree with neurology consultation.
--- NOTE | 2016-12-03 14:03 | Progress Note ---
Assessment and Plan Assessment and plan: Patient is a 56 years old -[place] with past medical history of seizure who presents emergency department complaining of syncope. Negative cardiac enzyme X3, EKG Sinus bradycardia with HR of high 40's/50's and Chest x-ray-no focal infiltrates, no pneumothorax. CT of the head no acute intracranial process. Unremarkable MRI of the head. Normal VL Carotid duplex. Syncope, seizure disorder with acute encephalopathy present on admission neurology restarted anticonvulsive/Keppra Patient will admit to telemetry floor Unremarkable MRI the head Negative CT of the head Normal VL Carotid duplex bilateral EKG Sinus bradycardia with HR of high 40's/50'swe will also get another EKG in order for any change that have taken since the first obtained Negative cardiac enzymes and follow cardiac enzymes troponin Echocardiogram ordered and reviewed Started on aspirin IV fluid hydration. ordered Orthostatic vitals. Bradycardia Transthoracic echocardiogram 12/02/2016 read as EF 55-60%, mild LAE, borderline dilatation of aortic root, trace AI Closely cardiac monitoring Consulted cardiology today Migraine headache Normal CT/MRI of the head Pain controlled with iv morphine Marijuana abuse Marijuana cessation counseling done patient strongly advised to quit smoking. Tobacco abuse Smoking sensation considering done patient strongly advised to quit. DVT prophylaxis Lovenox Disposition: The patient inpatient care, await EEG, anticipate discharge tomorrow if no seizure or syncopal episodes clear by cardiology and neurology. History Interval history: Patient seen and examined. Follow up on current diagnosis/syncope. Overnight uneventful. No cp, sob, n/v or severe headaches. Imaging, old records, testing, labs, nursing notes reviewed. Hospitalist Physical - Physical exam Narrative exam: GEN: WDWN, NAD, AWAKE, ALERT, ORIENTATED x 3 HEENT: NCAT, PERRL, EOMI, OP CLEAR NECK: SUPPLE, NO THYROMEGALY, NO JVD, NO LAD CVS: RRR, NORMAL S1S2 LUNGS/CHEST: CTA B, NORMAL CHEST EXPANSION B, GOOD AIR ENTRY B ABD: SOFT, NTND, GBS, NO REBOUND OR GUARDING EXT/SKIN: NO SIGNIFICANT EDEMA OR RASH MSK: FROM X 4 EXTREMITIES NEURO: CN 2-12 GROSSLY INTACT, NO FOCAL DEFICITS PSY: CALM - Constitutional Vitals: Temp Pulse Resp BP Pulse Ox 98.5 F 48 L 18 111/70 99 12/03/16 12:00 12/03/16 12:00 12/03/16 12:00 12/03/16 12:00 12/03/16 12:00 General appearance: Present: no acute distress Results - Labs CBC & Chem 7: 12/02/16 09:38 12/02/16 09:38 Labs: Laboratory Last Values WBC 5.1 K/mm3 (4.5-11.0) 12/02/16 09:38 RBC 3.69 M/mm3 (3.65-5.03) 12/02/16 09:38 Hgb 11.7 gm/dl (10.1-14.3) 12/02/16 09:38 Hct 34.5 % (30.3-42.9) 12/02/16 09:38 MCV 94 fl (79-97) 12/02/16 09:38 MCH 32 pg (28-32) 12/02/16 09:38 MCHC 34 % (30-34) 12/02/16 09:38 RDW 13.2 % (13.2-15.2) 12/02/16 09:38 Plt Count 254 K/mm3 (140-440) 12/02/16 09:38 Lymph % (Auto) 37.8 % (13.4-35.0) H 12/02/16 09:38 Dane % (Auto) 6.8 % (0.0-7.3) 12/02/16 09:38 Eos % (Auto) 2.1 % (0.0-4.3) 12/02/16 09:38 Baso % (Auto) 0.5 % (0.0-1.8) 12/02/16 09:38 Lymph # 1.9 K/mm3 (1.2-5.4) 12/02/16 09:38 Dane # 0.3 K/mm3 (0.0-0.8) 12/02/16 09:38 Eos # 0.1 K/mm3 (0.0-0.4) 12/02/16 09:38 Baso # 0.0 K/mm3 (0.0-0.1) 12/02/16 09:38 Seg Neutrophils % 52.8 % (40.0-70.0) 12/02/16 09:38 Seg Neutrophils # 2.7 K/mm3 (1.8-7.7) 12/02/16 09:38 PT 12.8 Sec. (12.2-14.9) 12/01/16 16:23 INR 0.97 (0.87-1.13) 12/01/16 16:23 APTT 27.5 Sec. (24.2-36.6) 12/01/16 16:23 Sodium 142 mmol/L (137-145) 12/02/16 09:38 Potassium 4.1 mmol/L (3.6-5.0) 12/02/16 09:38 Chloride 105.1 mmol/L (98-107) 12/02/16 09:38 Carbon Dioxide 24 mmol/L (22-30) 12/02/16 09:38 Anion Gap 17 mmol/L 12/02/16 09:38 BUN 10 mg/dL (7-17) 12/02/16 09:38 Creatinine 0.6 mg/dL (0.7-1.2) L 12/02/16 09:38 Estimated GFR > 60 ml/min 12/02/16 09:38 BUN/Creatinine Ratio 16.66 % 12/02/16 09:38 Glucose 92 mg/dL (65-100) 12/02/16 09:38 Calcium 8.4 mg/dL (8.4-10.2) 12/02/16 09:38 Magnesium 1.90 mg/dL (1.7-2.3) 12/01/16 16:23 Total Bilirubin 0.30 mg/dL (0.1-1.2) 12/01/16 16:23 AST 13 units/L (5-40) 12/01/16 16:23 ALT 14 units/L (7-56) 12/01/16 16:23 Alkaline Phosphatase 59 units/L (35-129) 12/01/16 16:23 Total Creatine Kinase 49 units/L (30-135) 12/01/16 16:23 CK-MB (CK-2) < 1.0 ng/mL (0.0-4.0) 12/01/16 16:23 CK-MB (CK-2) Rel Index 2.0 (0-4) 12/01/16 16:23 Troponin T < 0.010 ng/mL (0.00-0.029) 12/01/16 16:23 Total Protein 6.9 g/dL (6.3-8.2) 12/01/16 16:23 Albumin 4.0 g/dL (3.9-5) 12/01/16 16:23 Albumin/Globulin Ratio 1.4 % 12/01/16 16:23 Urine Color Yellow (Yellow) 12/01/16 16:55 Urine Turbidity Clear (Clear) 12/01/16 16:55 Urine pH 5.0 (5.0-7.0) 12/01/16 16:55 Ur Specific [place] 1.011 (1.003-1.030) 12/01/16 16:55 Urine Protein <15 mg/dl mg/dL (Negative) 12/01/16 16:55 Urine Glucose (UA) Neg mg/dL (Negative) 12/01/16 16:55 Urine Ketones Neg mg/dL (Negative) 12/01/16 16:55 Urine Blood Neg (Negative) 12/01/16 16:55 Urine Nitrite Neg (Negative) 12/01/16 16:55 Urine Bilirubin Neg (Negative) 12/01/16 16:55 Urine Urobilinogen < 2.0 mg/dL (<2.0) 12/01/16 16:55 Ur Leukocyte Esterase Mod (Negative) 12/01/16 16:55 Urine WBC (Auto) 4.0 /HPF (0.0-6.0) 12/01/16 16:55 Urine RBC (Auto) 4.0 /HPF (0.0-6.0) 12/01/16 16:55 U Epithel Cells (Auto) 4.0 /HPF (0-13.0) 12/01/16 16:55 Urine Mucus Few /HPF 12/01/16 16:55 Urine Opiates Screen Presumptive negative 12/01/16 16:55 Urine Methadone Screen Presumptive negative 12/01/16 16:55 Ur Barbiturates Screen Presumptive negative 12/01/16 16:55 Ur Phencyclidine Scrn Presumptive negative 12/01/16 16:55 Ur Amphetamines Screen Presumptive negative 12/01/16 16:55 U Benzodiazepines Scrn Presumptive negative 12/01/16 16:55 Urine Cocaine Screen Presumptive negative 12/01/16 16:55 U Marijuana (THC) Screen Presumptive positive 12/01/16 16:55 Drugs of Abuse Note Disclamer 12/01/16 16:55
[2016-12-04 09:02] VITALS: BP 107/55
[2016-12-04] MEDS: ASPIRIN PO SCH (09:09)
[2016-12-04] MEDS: KEPPRA PO SCH (09:09)
--- NOTE | 2016-12-04 09:22 | Progress Note ---
Assessment and Plan Syncope Negative Maryanne Normal 12 lead ECG Sinus bradycardia on tele Normal LVEF Seizure disorder Abnormal EEG revealing epileptic activity Recommendations: No further cardiac work-up needed for non-cardiac syncope Will sign off Subjective Date of service: 12/04/16 Principal diagnosis: Syncope Interval history: Patient denies chest pain or shortness of breath She is complaining of headaches Objective Vital Signs Temp Pulse Resp Resp BP Pulse Ox 12/04/16 08:00 97.5 F L 50 L 18 107/55 99 12/04/16 07:00 18 12/04/16 04:00 97.6 F 50 L 16 115/53 97 12/03/16 23:40 97.8 F 53 L 18 107/54 99 12/03/16 20:37 18 12/03/16 15:00 98.7 F 51 L 18 130/60 98 12/03/16 12:00 98.5 F 48 L 18 111/70 99 12/03/16 10:01 20 20 - Physical Examination HEENT: Positive: PERRL Neck: Positive: trachea midline Cardiac: Positive: Reg Rate and Rhythm Lungs: Positive: Normal Exam Neuro: Positive: Grossly Intact
[2016-12-04] MEDS: TYLENOL PO PRN (09:37)
[2016-12-04] MEDS: D5/0.45NS 1,000 ML IV SCH (09:38)
--- NOTE | 2016-12-04 11:24 | Discharge Summary ---
Providers - Providers Date of Admission: 12/02/16 04:05 Date of discharge: 12/04/16 Attending physician: MEDHAT SANDOVAL 12/02/16 12:49 Consult to Physician [CONS] Routine Consulting Provider: TAMIKO RIOJAS Reason For Exam: Seizures Place consult to:: Shine PARR Notified:: office Phone number called:: [phone] Was contact made?: Yes If yes, spoke with:: shani Time called:: 15:20 Primary care physician: DEANNA GOODRICH Hospitalization Condition: Stable Hospital course: Patient is a 56 years old -[place] with past medical history of seizure who presents emergency department complaining of syncope. Negative cardiac enzyme X3, EKG Sinus bradycardia with HR of high 40's/50's and Chest x-ray-no focal infiltrates, no pneumothorax. CT of the head no acute intracranial process. Unremarkable MRI of the head. Normal VL Carotid duplex. Syncope due to seizure disorder with acute encephalopathy present on admission neurology restarted anticonvulsive/Keppra Patient will admit to telemetry floor Unremarkable MRI the head Negative CT of the head Normal VL Carotid duplex bilateral EKG Sinus bradycardia with HR of high 40's/50'swe will also get another EKG in order for any change that have taken since the first obtained Negative cardiac enzymes and follow cardiac enzymes troponin Echocardiogram ordered and reviewed Started on aspirin IV fluid hydration. Orthostatic vitals. Bradycardia, sinus Transthoracic echocardiogram 12/02/2016 read as EF 55-60%, mild LAE, borderline dilatation of aortic root, trace AI Closely cardiac monitoring Consulted cardiology today, unlikely bradycardia is the cause of the syncope Migraine headache Normal CT/MRI of the head Pain controlled with iv morphine Marijuana abuse Marijuana cessation counseling done patient strongly advised to quit smoking. Tobacco abuse Smoking sensation considering done patient strongly advised to quit. DVT prophylaxis Lovenox Disposition: Home 12/03/16 EEG read as abnormal EEG because of this may not just persistent sharp wave discharges. I would consider this to be epileptic in nature as a sharp wave discharge per Dr. Riojas 12/04/16 d/w cece Horan to d/c home on 1000mg/day of Keppra. The sublingual anti-migraine medication (patient does not remember the name of the migraine medications that she took under the tongue) this maybe the precipitant of the syncope and seizures, I have instructed patient not to take any migraine medications until cleared by Dr. Roijas, no driving until cleared by Dr. Riojas and follow Dr. Riojas in about a week. Patient voiced understanding and agreement. No further seizures or syncope I asked pt to call and find out what medications she took. SHE IS WAS GIVEN PROPANOLOL AND SL MAXALT for migraines. The propanolol can explain the bradycardia. she should stop both Disposition: DC-01 TO HOME OR SELFCARE Time spent for discharge: 34 minutes Core Measure Documentation - Palliative Care Palliative Care/ Comfort Measures: Not Applicable - Core Measures Any of the following diagnoses?: none - VTE Discharge Requirements Deep Vein Thrombosis/Pulmonary Embolism Present on Admission: No Has pt received <5 days of overlap therapy or INR<2.0: No Anticoagulant overlap therapy prescribed at discharge: No Contraindication No Overlap Therapy order at DC: Not Indicated Exam - Physical Exam Narrative exam: GEN: WDWN, NAD, AWAKE, ALERT, ORIENTATED x 3 HEENT: NCAT, PERRL, EOMI, OP CLEAR NECK: SUPPLE, NO THYROMEGALY, NO JVD, NO LAD CVS: RRR, NORMAL S1S2 LUNGS/CHEST: CTA B, NORMAL CHEST EXPANSION B, GOOD AIR ENTRY B ABD: SOFT, NTND, GBS, NO REBOUND OR GUARDING EXT/SKIN: NO SIGNIFICANT EDEMA OR RASH MSK: FROM X 4 EXTREMITIES NEURO: CN 2-12 GROSSLY INTACT, NO FOCAL DEFICITS PSY: CALM - Constitutional Vitals: Temp Pulse Resp BP Pulse Ox 97.5 F L 50 L 18 107/55 99 12/04/16 08:00 12/04/16 08:00 12/04/16 08:00 12/04/16 08:00 12/04/16 08:00 Plan Activity: no driving until cleared by PCP (no driving until cleared by neurologist, must report seizures their PCP), other (no strenous activites until cleared by PCP. ) Diet: low salt Additional Instructions: Bring all medications including migraine medication to Dr. Riojas's office. Do not take migraine medications as they may precipitate a seizure. Okay to take Tylenol or ibuprofen or Aleve or Motrin with Prilosec and pepsi/coke cola for migraines Follow up with: DEANNA GOODRICH MD [Primary Care Provider] - 3-5 Days TAMIKO RIOJAS MD [Staff Physician] - 7 Days Prescriptions: levETIRAcetam [Keppra TAB] 500 mg PO BID #60 tablet
--- NOTE | 2016-12-04 14:02 | Consultation ---
History of Present Illness - Reason for Consult Consult date: 12/04/16 seizure - History of Present Illness came by and spoke to patient she was on inderal and maxalt before for the headaches and obviously these meds do not control seizures rec keppra and f/u in the office Past History Past Medical History: seizures (not on med) Past Surgical History: No surgical history Social history: no significant social history, other (Marijuana abuse) Family history: CAD Medications and Allergies Allergies Allergy/AdvReac Type Severity Reaction Status Date / Time Penicillins AdvReac Severe FACE & Unverified 01/31/14 12:33 TONGUE SWELLS Home Medications Medication Instructions Recorded Confirmed Last Taken Type Lansoprazole [Prevacid] 30 mg PO DAILY 12/02/16 12/02/16 1 Week Ago History Acetaminophen [Acetaminophen TAB] 325 mg PO Q4H PRN #30 tablet 12/04/16 Unknown Rx levETIRAcetam [Keppra TAB] 500 mg PO BID #60 tablet 12/04/16 Unknown Rx Active Meds: Active Medications Acetaminophen (Tylenol) 650 mg PO Q4H PRN PRN Reason: Pain MILD(1-3)/Fever >100.5/ROSS Last Admin: 12/04/16 09:37 Dose: 650 mg Aspirin (Aspirin) 325 mg PO QDAY ANDRES Last Admin: 12/04/16 09:09 Dose: 325 mg Bisacodyl (Dulcolax) 10 mg OR QDAY PRN PRN Reason: Constipation unrelieved by MOM Sodium Chloride (Nacl 0.9% 1000 Ml) 1,000 mls @ 100 mls/hr IV DIRECT ANDRES Dextrose/Sodium Chloride (D5/0.45ns) 1,000 mls @ 75 mls/hr IV DIRECT ANDRES Last Admin: 12/04/16 09:38 Dose: 75 mls/hr Levetiracetam (Keppra) 500 mg PO BID ANDRES Last Admin: 12/04/16 09:09 Dose: 500 mg Morphine Sulfate (Morphine) 2 mg IV Q4H PRN PRN Reason: Pain, Moderate (4-6) Ondansetron HCl (Zofran) 4 mg IV Q4H PRN PRN Reason: Nausea And Vomiting Exam - Constitutional Vitals: Temp Pulse Resp BP Pulse Ox 97.5 F L 50 L 18 107/55 99 12/04/16 08:00 12/04/16 08:00 12/04/16 08:00 12/04/16 08:00 12/04/16 08:00 Results - Labs CBC & Chem 7: 12/02/16 09:38 12/02/16 09:38
--- NOTE | 2016-12-09 10:10 | Vascular Lab Report ---
CAROTID DUPLEX STUDY: RIGHT PSVEDV CCA PROX:[id number] CCA DIST:5619 ICA PROX:5714 ICA MID:7534 ICA DIST:7729 ECA: 59 VERT: 43 18 LEFT PSVEDV CCA PROX:8723 CCA DIST:6522 ICA PROX:5621 ICA MID:8637 ICA DIST:7727 ECA: 48 VERT: 41 12 REASON FOR EXAM: Carotid artery stenosis/syncope. COMMENTS ON THE RIGHT: Doppler frequency analysis is consistent with 16 to 49 percent diameter reduction of the internal carotid artery. Minimal amount of plaque is seen. The common carotid artery is patent. The external carotid artery is patent. The vertebral artery has antegrade flow. COMMENTS ON THE LEFT: Doppler frequency analysis is consistent with 16 to 49 percent diameter reduction of the internal carotid artery. Minimal amount of plaque is seen. The common carotid artery is patent. The external carotid artery is patent. The vertebral artery has antegrade flow. IMPRESSION: Less than 50% diameter reduction in the internal carotid arteries bilaterally. Consider repeat carotid artery duplex in 12 months.
== END 2016-12-04 14:00 | disposition home or self-care (01) | DRG 100 ==
LOC: ED 16:02 → 4A 12-02 04:05 → 3A 12-02 09:52
PROVIDERS: ADMIT Internal Medicine; ATTEND Internal Medicine
DX: G40.909 Epilepsy, unspecified, not intractable, without status epilepticus (principal); G93.40 Encephalopathy, unspecified; F12.10 Cannabis abuse, uncomplicated; F17.210 Nicotine dependence, cigarettes, uncomplicated; R00.1 Bradycardia, unspecified; G43.909 Migraine, unspecified, not intractable, without status migrainosus; Z71.6 Tobacco abuse counseling; Z71.51 Drug abuse counseling and surveillance of drug abuser; Z90.710 Acquired absence of both cervix and uterus; Z90.49 Acquired absence of other specified parts of digestive tract; Z72.89 Other problems related to lifestyle; Z82.49 Family history of ischemic heart disease and other diseases of the circulatory system; Z88.0 Allergy status to penicillin
CPT/HCPCS: 36415; 70450; 70551; 80048; 80053; 80307; 81001; 82550; 82553; 82962; 83735; 84443; 84484; 85025; 85610; 85730; 93005; 93010; 93306; 93880; 95819; 96374; 99406; J1953; J7030

== ENCOUNTER 2020-08-23 12:45 | Emergency (ER) | payer SELFPAY ==
[2020-08-23 13:49] VITALS: BP 125/63
[2020-08-23] MEDS ORDERED: FLUORESCEIN 1 MG STRIP OP ONE (14:13)
--- NOTE | 2020-08-23 14:36 | Emergency Department Report ---
ED Eye Problem HPI - General Chief complaint: Eye Problems Stated complaint: EYE INURY Time Seen by Provider: 08/23/20 14:02 Source: patient Mode of arrival: Ambulatory Limitations: No Limitations - History of Present Illness Initial comments: 58-year-old female presents to the ER stating that she got something in her right eye. Patient states that she was sitting outside in the back of her house yesterday when she felt something go into her right eye. She states that her neighbor was blowing leaves but is not sure if that is where it came from. She states that since the injury she has been having foreign body sensation to the right eye, as well as some redness, increased tearing, and increased blurry vision. She typically wears glasses for distance but has not been wearing it today. She denies any purulent drainage, or matting. She does not wear contacts. She denies any grinding or welding. MD chief complaint: eye redness, eye injury, vision change, foreign body -: Sudden (yesterday) - Related Data Home Medications Medication Instructions Recorded Confirmed Last Taken Lansoprazole [Prevacid] 30 mg PO DAILY 12/02/16 12/02/16 1 Week Ago ~11/25/16 Previous Rx's Medication Instructions Recorded Last Taken Type Acetaminophen [Acetaminophen TAB] 325 mg PO Q4H PRN #30 tablet 12/04/16 Unknown Rx levETIRAcetam [Keppra TAB] 500 mg PO BID #60 tablet 12/04/16 Unknown Rx Erythromycin [Erythromycin Ophth 1 applicatio OD QID 7 Days #1 tube 08/23/20 Unknown Rx Oint] Allergies Allergy/AdvReac Type Severity Reaction Status Date / Time Penicillins AdvReac Severe FACE & Unverified 01/31/14 12:33 TONGUE SWELLS ED Review of Systems ROS: Stated complaint: EYE INURY Other details as noted in HPI Comment: All other systems reviewed and negative Constitutional: denies: chills, diaphoresis, fever, malaise, weakness Eyes: eye pain, eye discharge, vision change ENT: denies: ear pain, throat pain Respiratory: denies: see HPI, cough, orthopnea, shortness of breath, SOB with exertion, SOB at rest, wheezing Cardiovascular: denies: chest pain, palpitations, dyspnea on exertion, edema, syncope, paroxysmal nocturnal dyspnea Endocrine: no symptoms reported Gastrointestinal: denies: abdominal pain, nausea, vomiting, diarrhea, constipation, hematemesis, hematochezia Genitourinary: as per HPI. denies: urgency, dysuria, frequency, hematuria, discharge, abnormal menses, dyspareunia Musculoskeletal: as per HPI. denies: joint swelling, arthralgia, myalgia Skin: denies: rash, lesions Neurological: denies: headache, weakness, numbness, paresthesias, confusion, abnormal gait Psychiatric: denies: anxiety, depression, auditory hallucinations, visual hallucinations, homicidal thoughts, suicidal thoughts Hematological/Lymphatic: denies: easy bleeding, easy bruising, swollen glands ED Past Medical Hx - Past Medical History Previous Medical History?: Yes Hx Hypertension: No Hx Heart Attack/AMI: No Hx Congestive Heart Failure: No Hx Diabetes: No Hx Deep Vein Thrombosis: No Hx Pulmonary Embolism: No Hx Sickle Cell Disease: No Hx Seizures: Yes Hx Asthma: No Hx COPD: No Hx Tuberculosis: No Hx Dementia: No Hx HIV: No Additional medical history: Vaginal dleivery x 2, Uterine fibroids, Hysterectomy - Surgical History Past Surgical History?: Yes Hx Coronary Stent: No Hx Open Heart Surgery: No Hx Pacemaker: No Hx Internal Defibrillator: No Hx Cholecystectomy: Yes Hx Appendectomy: No Hx Breast Surgery: No Additional Surgical History: Hysterectomy, Bladder tact - Social History Smoking Status: Current Every Day Smoker - Medications Home Medications: Home Medications Medication Instructions Recorded Confirmed Last Taken Type Lansoprazole [Prevacid] 30 mg PO DAILY 12/02/16 12/02/16 1 Week Ago History ~11/25/16 Acetaminophen [Acetaminophen TAB] 325 mg PO Q4H PRN #30 tablet 12/04/16 Unknown Rx levETIRAcetam [Keppra TAB] 500 mg PO BID #60 tablet 12/04/16 Unknown Rx Erythromycin [Erythromycin Ophth 1 applicatio OD QID 7 Days #1 tube 08/23/20 Unknown Rx Oint] ED Physical Exam - General Limitations: No Limitations General appearance: alert, in no apparent distress - Head Head exam: Present: atraumatic, normocephalic, normal inspection - Eye Eye exam: Present: PERRL, EOMI, conjunctival injection (mild right eye ), other (Tesfaye exam right eye -- corneal abrasion noted about 5 oclock of right oclock, it extends slightly over the pupil; No hyphema, obvious of globe rupture). Absent: periorbital swelling, periorbital tenderness - Expanded Eye Exam Expanded Sclera/Conjunctival: Injection: Right Anterior chamber: Normal Inspection: Bilateral Posterior chamber: Deferred: Bilateral Visual acuity (R) = 20/: 50 Visual acuity (L) = 20/: 50 With correction: No - ENT ENT exam: Present: normal exam, mucous membranes moist - Neck Neck exam: Present: normal inspection, full ROM - Respiratory Respiratory exam: Present: normal lung sounds bilaterally. Absent: respiratory distress - Cardiovascular Cardiovascular Exam: Present: regular rate, normal rhythm, normal heart sounds - Neurological Exam Neurological exam: Present: alert, oriented X3, CN II-XII intact, normal gait - Psychiatric Psychiatric exam: Present: normal affect, normal mood - Skin Skin exam: Present: intact ED Course Vital Signs 08/23/20 13:47 Temperature 98.4 F Pulse Rate 64 Respiratory 18 Rate Blood Pressure 125/63 [Right] O2 Sat by Pulse 97 Oximetry Critical care attestation.: If time is entered above; I have spent that time in minutes in the direct care of this critically ill patient, excluding procedure time. ED Disposition Clinical Impression: Corneal abrasion, right Disposition: DC-01 TO HOME OR SELFCARE Is pt being admited?: No Does the pt Need Aspirin: No Condition: Stable Instructions: Corneal Abrasion, [id number] Additional Instructions: Use the erythromycin ointment as prescribed. Do not put any covering over the eye. Try not to drive or operate any heavy equipment while using the ointment as it can cause a film over the eye and decrease vision. I recommend that you wear your glasses. Follow up with your telecommunications specialist in about 5 days. Return to ED if worse. Prescriptions: Erythromycin [Erythromycin Ophth Oint] 1 applicatio OD QID 7 Days #1 tube Referrals: DEANNA GOODRICH MD [Primary Care Provider] - 3-5 Days Time of Disposition: 14:41
== END 2020-08-23 14:47 | disposition home or self-care (01) ==
LOC: ED 12:45
DX: S05.01XA Injury of conjunctiva and corneal abrasion without foreign body, right eye, initial encounter (principal); G40.909 Epilepsy, unspecified, not intractable, without status epilepticus; F17.200 Nicotine dependence, unspecified, uncomplicated; Z90.49 Acquired absence of other specified parts of digestive tract; Z79.899 Other long term (current) drug therapy; W45.8XXA Other foreign body or object entering through skin, initial encounter; Y93.89 Activity, other specified; Y92.89 Other specified places as the place of occurrence of the external cause; Y99.8 Other external cause status
CPT/HCPCS: 99282